=== PATIENT | female | born 1975 | race Caucasian/White ===

== ENCOUNTER 2017-07-12 11:30 | Emergency (ER) | payer OTHER ==
[~2017-07-12] VITALS: Ht 177.8 cm; Wt 115.7 kg
[~2017-07-12 11:30] MED LIST: CLARITIN10 MG PO; LEVOFLOXACIN500 MG PO; MOTRIN800 MG PO; TRAMADOL HCL50 MG PO; TRIMOX500 MG PO
[2017-07-12 11:40] VITALS: BP 128/83
[2017-07-12 11:56] LABS: BILIRUBIN NEGATIVE (NEGATIVE); BLOOD NEGATIVE (NEGATIVE); CLARITY SL CLOUDY (CLEAR); COLOR YELLOW (YELLOW); GLUCOSE NEGATIVE (NEGATIVE); KETONE NEGATIVE (NEGATIVE); LEUKO ESTERASE NEGATIVE (NEGATIVE); NITRITE NEGATIVE (NEGATIVE); PH 5.5 (5.0-9.0); SPECIFIC GRAVITY >= 1.030 (1.005-1.030); UROBILINOGEN 0.2 E.U./dl (0.2-1.0)
[2017-07-12 12:05] LABS: BACTERIA TRACE; EPITHELIAL CELLS 16-20; MUCOUS 2+
[2017-07-12] MEDS ORDERED: NAPROSYN500 MG PO (12:08)
[2017-07-12] MEDS ORDERED: CHLORZOXAZONE500 M2 PO (12:08)
== END 2017-07-12 13:17 | disposition home or self-care (01) ==
LOC: ED 11:30
PROVIDERS: Nurse Practitioner Family
DX: M54.5 Low back pain (principal); R03.0 Elevated blood-pressure reading, without diagnosis of hypertension

== ENCOUNTER 2018-04-21 11:12 | Inpatient (IN) | payer MEDICAID ==
[2018-04-21] VITALS (8 sets, daily range): BP systolic 132–147; BP diastolic 67–81
[~2018-04-21 11:12] MED LIST changes: +CHLORZOXAZONE500 M2 PO; +NAPROSYN500 MG PO
[2018-04-21 11:34] LABS: BASO % 0.2 % (0.0-1.0); HEMATOCRIT 40.2 % (37.0-47.0); LYMPH # 0.4 10*3/uL (1.3-4.4); MEAN CELL VOLUME 78.8 fl (81.0-99.0); MEAN CORPUSCULAR HGB 25.5 pg (27.0-31.0); MEAN CORPUSCULAR HGB CONC 32.3 g/dl (33.0-37.0); MEAN PLATELET VOLUME 9.6 fl (9.6-12.3); MONO # 0.3 10*3/uL (0.1-1.0); MONO % 4.9 % (3.0-9.0); NEUT # 4.7 10*3/uL (2.3-7.9); NEUT % 87.7 % (47.0-73.0); PLATELET COUNT AUTOMATED 370 10*3/uL (130-400); WHITE BLOOD COUNT 5.3 10*3/uL (4.8-10.8)
--- NOTE | 2018-04-21 11:40 | NUR ---
THE PT VOIDED PRIOR TO ARRIVAL AT THE ED AND CAN NOT PROVIDE A SAMPLE
[2018-04-21 11:50] LABS: ALBUMIN 2.8 gm/dl (3.1-4.5); ALKALINE PHOSPHATASE 63 U/L (45-117); BUN 10 mg/dl (7-24); CHLORIDE 99 mmol/L (98-107); CREATININE 0.98 mg/dL (0.55-1.02); LIPASE 42 U/L (73-393); POTASSIUM 3.5 mmol/L (3.5-5.1); SGOT/AST 11 IU/L (3-35); SGPT/ALT 21 U/L (12-78); SODIUM 133 mmol/L (136-145); TOTAL PROTEIN 8.1 gm/dL (6.4-8.2)
[2018-04-21] MEDS ORDERED: LEVOTHYROXINE150 MCG PO (11:51)
[2018-04-21] MEDS ORDERED: FEROSUL325 M1 PO (11:51)
[2018-04-21] MEDS ORDERED: IBU800 M1 PO (11:51)
[2018-04-21] MEDS ORDERED: SIMVASTATIN10 MG PO (11:52)
[2018-04-21] MEDS ORDERED: GLIMEPIRIDE4 M1 PO (11:52)
[2018-04-21] MEDS ORDERED: LOSARTAN POTASS50 M1 PO (11:52)
[2018-04-21] MEDS ORDERED: METFORMIN HYD1000 MG PO (11:53)
[2018-04-21 12:46] LABS: BILIRUBIN 2+ (NEGATIVE); BLOOD 3+ (NEGATIVE); CLARITY TURBID (CLEAR); COLOR ORANGE (YELLOW); GLUCOSE NEGATIVE (NEGATIVE); KETONE 1+ (NEGATIVE); LEUKO ESTERASE NEGATIVE (NEGATIVE); NITRITE POSITIVE (NEGATIVE); SPECIFIC GRAVITY 1.025 (1.005-1.030)
[2018-04-21 13:12] LABS: BACTERIA 3+; RBC 31-40 rbc/hpf (0-2)
--- NOTE | 2018-04-21 13:47 | NUR ---
THE PAIN MEDICATION DID HELP RELIEVE THE PAIN
--- NOTE | 2018-04-21 14:28 | NUR ---
A 42, admitted to , under the services of SHAWN Lorenzo DO with a diagnosis of PERFORATED SIG COLON/UTI. Chief complaint is ABDOMINAL PAIN. Patient arrived via stretcher from ER. Monitor applied. Initial assessment completed. Vital signs taken and recorded. SHAWN LORENZO DO notified of admission to the unit. Orders received. See assessment for past medical history, medications and allergies. Patient and/or family oriented to unit. [facility] visitation policy reviewed. Clothing/patient valuable form completed. EVA NGUYEN
--- NOTE | 2018-04-21 16:13 | NUR ---
1510 Dr[facility] Discuss[facility] Dr. mosqueda consult Dr. Mosqueda was called for consult notification an plan. Stated that he would speak to Dr. Mead. 1615 Medicated for c/o abdominal pain 09/26. pt. is under the impression that abdominal surgery is pending. Informed that I would notify her when i hear any thing.
--- NOTE | 2018-04-21 17:18 | NUR ---
Pt. requesting ice chips. Dr. Mcneil was called re: plan. Family here stating they were under the impression that surgery would be done emergently this evening.
--- NOTE | 2018-04-21 18:13 | NUR ---
Medicated for c/o nausea. Dtr in room. UC obtained and sent.
--- NOTE | 2018-04-21 20:00 | NUR ---
PT C/O ABD PAIN 01/26. PRN PAIN MEDS GIVEN. TEMP 101.[address] DEVLIN. CURRENTLY AWAITING NEW ORDERS.
--- NOTE | 2018-04-21 20:45 | NUR ---
NOTIFIED DR WAGGONER OF TEMP 101.[address] TORRES. NO NEW ORDERS RECEIVED. DR WAGGONER STATES THAT ELEVATED TEMP IS NORMAL.
[2018-04-22] VITALS: BP 114/48
--- NOTE | 2018-04-22 00:05 | NUR ---
INTO SEE PT. PT GIVEN MEDS FOR COMFORT. PRN DILAUDID EFFECTIVE IMMIDIATLY. ASSESSED. TEMP HAS GONE DOWN. PAIN IN ABD
--- NOTE | 2018-04-22 06:17 | NUR ---
PT GIVEN DILAUDID FOR PAIN. EFFECTIVE IMMEDIATLY. WILL CONTINUE TO MONITOR PT
[2018-04-22 06:34] LABS: HEMATOCRIT 39.1 % (37.0-47.0); HEMOGLOBIN 12.2 g/dl (12.0-16.0); MEAN CELL VOLUME 80.8 fl (81.0-99.0); MEAN CORPUSCULAR HGB 25.2 pg (27.0-31.0); MEAN CORPUSCULAR HGB CONC 31.2 g/dl (33.0-37.0); MEAN PLATELET VOLUME 9.8 fl (9.6-12.3); PLATELET COUNT AUTOMATED 369 10*3/uL (130-400); RED BLOOD COUNT 4.84 10*6/uL (4.10-5.10); RED CELL DISTRI WIDTH 16.7 % (0-14.5); WHITE BLOOD COUNT 9.8 10*3/uL (4.8-10.8)
[2018-04-22 06:41] LABS: ALKALINE PHOSPHATASE 51 U/L (45-117); BUN 14 mg/dl (7-24); CHLORIDE 104 mmol/L (98-107); CHOLESTEROL 85 mg/dL (<200); CREATININE 0.98 mg/dL (0.55-1.02); FREE T4 1.34 ng/dl (0.76-1.46); HDL CHOLESTEROL 26 mg/dl (40-60); LDL CHOLESTEROL 43 mg/dL (9-159); PHOSPHOROUS 3.6 mg/dL (2.5-4.9); POTASSIUM 3.5 mmol/L (3.5-5.1); SGOT/AST 9 IU/L (3-35); SGPT/ALT 15 U/L (12-78); SODIUM 139 mmol/L (136-145); TOTAL PROTEIN 6.9 gm/dL (6.4-8.2); TRIGLYCERIDES 82 mg/dl (<150); VLDL CHOLESTEROL 16 mg/dL (6-40)
[2018-04-22 06:46] LABS: ACT PARTIAL THROMBO TIME 32.9 SECONDS (20.8-31.5); INTERNATIONAL NORM RATIO 1.1 (2.0-3.5)
[2018-04-22 07:30] LABS: TOTAL CELLS COUNTED 100 #CELLS
[2018-04-22 07:31] LABS: BURR CELLS FEW; OVALOCYTES FEW; PLATELET SUFFICIENCY NORMAL (NORMAL); POLYCHROMASIA SLIGHT
[2018-04-22 07:32] LABS: MICROCYTOSIS SLIGHT
--- NOTE | 2018-04-22 07:35 | NUR ---
INFORMED THAT PATIENT IS NOW REQUESTING TO GO TO [facility] INSTEAD OF [facility].
[2018-04-22 08:00] VITALS: BP 130/58
--- NOTE | 2018-04-22 08:27 | NUR ---
PATIENT REQUETSED DILUADID FOR C/O 10/10 PAIN TO ABDOMINAL REGION. PRN GIVEN, WILL MONITOR.
--- NOTE | 2018-04-22 08:30 | NUR ---
INFORMED THAT PATIENT IS NAUSEATED AT THIS TIME AND NOT DUE FOR ZOFRAN. STATED HE WOULD PLACE A ONE TIME ORDER OF PHENERGAN
--- NOTE | 2018-04-22 09:00 | NUR ---
Demographer in to talk to patient. Patient states lives at home with family. There are few steps in the home. Physician: shawna brandt Pharmacy: Home health services: none Patient's level of ADLs: INDEPENDENT Patient has working utilities: all working DME: none Follow-up physician's appointment after d/c: will be made by hospitalist nurse director upon discharge Does patient want to access PORTAL?: no Discharge plan discussed with patient, patient states she lives at home with family, is independent in adls and ambulation, patient states she is being transferred to another hospital for surgery, case management will follow. DAVID ABDI
--- NOTE | 2018-04-22 09:27 | NUR ---
PRN DILAUDID SOMEWHAT EFFECTIVE FRO ABDOMINAL PAIN.
[2018-04-22 09:35] LABS: VITAMIN D, 25-HYDROXY 18.7 ng/mL (30-100)
--- NOTE | 2018-04-22 10:44 | NUR ---
TRIED CALLING REPORT TO [facility] NURSE. ON HOLD 20 MINUTES. WILL TRY AGAIN.
--- NOTE | 2018-04-22 11:19 | NUR ---
REPORT PROVIDED TO [facility].
--- NOTE | 2018-04-22 11:45 | NUR ---
Discharge instructions reviewed with patient. Patient receptive and verbalizes understanding. PATIENT TO BE TRANFERRED TO [facility] BY [facility]. Written instructions given to AMBULANCE. IV CATHETER TO REMAIN IN [place]. 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 ANTONY PATINO
== END 2018-04-22 11:45 | disposition short-term general hospital (02) | DRG 872 ==
LOC: ED 11:12 → 4E 14:20 → EDHOLD 14:20 → 4E 14:28
PROVIDERS: Family Medicine; Nurse Practitioner Family; ADMIT Internal Medicine
DX: A41.9 Sepsis, unspecified organism (principal); K57.20 Diverticulitis of large intestine with perforation and abscess without bleeding; N39.0 Urinary tract infection, site not specified; E87.1 Hypo-osmolality and hyponatremia; E44.0 Moderate protein-calorie malnutrition; I10 Essential (primary) hypertension; E11.65 Type 2 diabetes mellitus with hyperglycemia; R31.9 Hematuria, unspecified; E03.9 Hypothyroidism, unspecified; E78.5 Hyperlipidemia, unspecified; F12.10 Cannabis abuse, uncomplicated; E66.01 Morbid (severe) obesity due to excess calories; Z98.51 Tubal ligation status; Z87.891 Personal history of nicotine dependence; Z80.8 Family history of malignant neoplasm of other organs or systems; Z83.6 Family history of other diseases of the respiratory system; Z68.35 Body mass index [BMI] 35.0-35.9, adult; Z79.84 Long term (current) use of oral hypoglycemic drugs

== ENCOUNTER 2020-11-03 14:43 | Emergency (ER) | payer MEDICAID ==
[~2020-11-03] VITALS: Ht 177.8 cm; Wt 110.2 kg
[~2020-11-03 14:43] MED LIST changes: +FEROSUL325 M1 PO; +GLIMEPIRIDE4 M1 PO; +IBU800 M1 PO; +LEVOTHYROXINE150 MCG PO; +LOSARTAN POTASS50 M1 PO; +METFORMIN HYD1000 MG PO; +SIMVASTATIN10 MG PO
[2020-11-03 16:02] VITALS: BP 121/83
[2020-11-03] MEDS ORDERED: CEPHALEXIN500 M1 PO (16:14)
== END 2020-11-03 16:17 | disposition home or self-care (01) ==
LOC: ED 14:43
DX: L02.31 Cutaneous abscess of buttock (principal); Z79.899 Other long term (current) drug therapy; Z98.890 Other specified postprocedural states; Z98.51 Tubal ligation status; Z87.891 Personal history of nicotine dependence

== ENCOUNTER → 2024-12-11 | Outpatient (CLI) | payer OTHER, MEDICAID ==
[~2024-12-11] MED LIST changes: +CEPHALEXIN500 M1 PO; +PERCOCET 5-3251 EACH PO; +SEPTDS PO
== END ==
LOC: US 15:54
PROVIDERS: ATTEND Registered Nurse
DX: S81.859A Open bite, unspecified lower leg, initial encounter (principal); X58.XXXA Exposure to other specified factors, initial encounter; Y93.89 Activity, other specified; Y92.89 Other specified places as the place of occurrence of the external cause; Y99.8 Other external cause status

== ENCOUNTER 2024-12-14 16:53 | Emergency (ER) | payer OTHER, MEDICAID ==
[~2024-12-14 16:53] MED LIST changes: -SEPTDS PO
[2024-12-14 17:14] VITALS: BP 164/104
[2024-12-14] MEDS ORDERED: SEPTDS PO (18:59)
[2024-12-14] MEDS ORDERED: Sulfamethoxazole/Trimethopri 1 TAB TAB PO ONE (19:00)
== END 2024-12-14 19:12 | disposition home or self-care (01) ==
LOC: ED 16:53
DX: S91.302A Unspecified open wound, left foot, initial encounter (principal); E78.5 Hyperlipidemia, unspecified; I10 Essential (primary) hypertension; E03.9 Hypothyroidism, unspecified; E66.01 Morbid (severe) obesity due to excess calories; Z79.899 Other long term (current) drug therapy; Z98.890 Other specified postprocedural states; Z87.891 Personal history of nicotine dependence; X58.XXXA Exposure to other specified factors, initial encounter; Y93.89 Activity, other specified; Y92.89 Other specified places as the place of occurrence of the external cause; Y99.8 Other external cause status

== ENCOUNTER 2025-02-14 11:35 | Emergency (ER) | payer OTHER ==
[~2025-02-14] VITALS: Ht 175.2 cm; Wt 98.9 kg
[~2025-02-14 11:35] MED LIST changes: +SEPTDS PO
[2025-02-14 11:44] VITALS: BP 123/90
[2025-02-14] MEDS ORDERED: diphenhydrAMINE hydrochloride 50 MG/ML VIAL IV ONE (11:55)
[2025-02-14] MEDS ORDERED: FAMOTIDINE 20 MG in SYRINGE INFUSION 8 ML IV ONE (11:55)
[2025-02-14] MEDS ORDERED: SODIUM CHLORIDE 0.9% 1,000 ML IV ONE (11:55)
[2025-02-14] MEDS ORDERED: Metoclopramide Hydrochloride 10 MG/2 ML VIAL IV ONE (11:55)
[2025-02-14 12:08] LABS: BASO # 0.0 10*3/uL (0.0-0.1); BASO % 0.2 % (0.0-1.0); EOS # 0.0 10*3/uL (0.0-0.4); EOS % 0.4 % (1.0-4.0); MEAN CELL VOLUME 84.7 fl (81.0-99.0); MEAN CORPUSCULAR HGB 27.3 pg (27.0-31.0); MEAN PLATELET VOLUME 9.4 fl (9.6-12.3); MONO # 0.6 10*3/uL (0.1-1.0); MONO % 6.8 % (3.0-9.0); NEUT # 7.4 10*3/uL (2.3-7.9); NEUT % 78.4 % (47.0-73.0); NUCLEATED RED BLOOD CELL 0.0 % (0.0-0.0); NUCLEATED RED BLOOD CELL 0.0 10*3/uL (0.0-0.0); PLATELET COUNT AUTOMATED 208 10*3/uL (130-400); RED CELL DISTRI WIDTH 13.8 % (0-14.5)
[2025-02-14 12:30] LABS: BUN 9 mg/dl (9-23)
[2025-02-14] MEDS ORDERED: REGLAN10 M1 PO (12:59)
[2025-02-14] MEDS ORDERED: PEPCID20 MG PO (12:59)
== END 2025-02-14 13:10 | disposition home or self-care (01) ==
LOC: ED 11:35
PROVIDERS: Emergency Medicine
DX: R07.89 Other chest pain (principal); R11.2 Nausea with vomiting, unspecified; I10 Essential (primary) hypertension; E03.9 Hypothyroidism, unspecified; K21.9 Gastro-esophageal reflux disease without esophagitis; Z87.891 Personal history of nicotine dependence; Z98.51 Tubal ligation status; Z98.890 Other specified postprocedural states